=== PATIENT | female | born 1995 | race Caucasian/White ===

== ENCOUNTER 2017-05-14 05:24 | Day surgery (SDC) | payer MEDICAID ==
[~2017-05-14] VITALS: Ht 154.9 cm; Wt 54.4 kg
--- NOTE | ~2017-05-14 | OP ---
PATIENT NAME: ABE BURGESS MEDICAL RECORD: [id number] :89 [facility] ADMISSION DATE: SURGEON: AGUSTÍN TALAVERA MD DATE OF OPERATION: 05/14/2017 PREOPERATIVE DIAGNOSIS: Chronic pharyngitis. POSTOPERATIVE DIAGNOSIS: Chronic pharyngitis. PROCEDURE: Tonsillectomy and adenoidectomy. SURGEON: Agustín Talavera MD ANESTHESIA: General orotracheal. BLOOD LOSS: Less than 5 cc. SPECIMENS: Right and left tonsil. COMPLICATIONS: None. DISPOSITION: Recovery stable. DESCRIPTION OF PROCEDURE: She was brought to the operating room and placed in supine position, sedated by mask by anesthesia and then intubated. Eyes were taped. The head drape was applied. The table was turned 90 degrees. She was positioned for tonsillectomy. Using a headlight, a Justa-Errol mouth gag was carefully inserted and elevated on a towel on her chest. The palate was examined and palpated. It was normal. A red rubber catheter was placed through the right side of the nose into the pharynx and grasped with tonsil clamp to retract the soft palate. Using a mirror, the nasopharynx was examined. Suction cautery on a setting of 35 was used to ablate and suction the adenoid pad with no significant bleeding. The choanae and eustachian tube orifices were normal bilaterally. The red rubber catheter was let down and removed. The right tonsil was grasped at the superior pole with a straight Allis clamp. Spatula tip cautery on a setting of 9 was used to dissect out the tonsil along its capsule, preserving the anterior and posterior tonsillar pillars. The left tonsil was removed in the same fashion. There was tremendous amount of caseous material both tonsils. After the tonsils were out, both sides of the nose were irrigated with saline. The pharynx was suctioned. Tonsillar fossae were agitated with the Yankauer suction and then suction cautery on a setting of 20 was used to control minimal oozing. With the field clean and dry, she was awakened, extubated, and transported to recovery in good condition. No complications. TRANSINT:[id number] Voice Confirmation ID: [id number] DOCUMENT ID: [id number] OPERATIVE REPORT [id number] SCARBOUGH,ABEAGUSTÍN RIZO MD at 1458 CC: [id number] DICTATION DATE: 05/14/17 1028 [employer] SALESPERSON: 05/14/17 1329 [facility] 05/14/17 [id number] [place] [address]
--- NOTE | ~2017-05-14 | HP ---
PATIENT: ABE BURGESS MEDICAL RECORD: [id number] ACCOUNT: [id number] LOCATION:[facility] : 95 ADMISSION DATE: 05/14/17 HISTORY AND PHYSICAL EXAMINATION HISTORY OF PRESENT ILLNESS: Abe is 22 years old. She has been having persistent problems with recurrent strep pharyngitis. She is being admitted for tonsillectomy and adenoidectomy. PAST MEDICAL HISTORY: Includes cardiac ablation in 2008. CURRENT MEDICATIONS: None. ALLERGIES: No known drug allergies. PHYSICAL EXAMINATION: GENERAL: She is healthy-appearing. FACE: Normal, symmetric. No lesions. EYES: Sclerae and conjunctivae are normal. EARS: Canals and TMs are normal. NOSE: No mass, polyps or drainage. ORAL CAVITY AND OROPHARYNX: Normal palate. Tongue protrudes in midline. Her tonsils are chronically infected appearing with caseous material and inflammation. NECK: No masses, no adenopathy. CHEST: Clear. CARDIOVASCULAR: Regular rate and rhythm. No murmur. EXTREMITIES: Normal. IMPRESSION: Chronic pharyngitis. PLAN: Tonsillectomy and adenoidectomy. TRANSINT:[id number] Voice Confirmation ID: [id number] DOCUMENT ID: [id number] AGUSTÍN RODARTE MD at 1458 CC: [id number] DICTATION DATE: 05/10/17 0838 [employer] AS[employer]ER: 05/10/17 0954 [facility] 05/14/[address] [address]
[2017-05-14 06:08] LABS: HEMATOCRIT 39.5 % (36.0-48.0); HEMOGLOBIN 13.3 g/dL (12-16); MCH 29.8 pg (26.0-34.0); MCHC 33.7 g/dL (31.0-37.0); MCV 88.6 fL (80.0-100.0); MEAN PLATELET VOLUME 10.9 fL (7.4-10.4); RBC 4.46 10x6/uL (4.00-5.40); RDW 12.9 % (11.5-14.5); WBC 6.3 10x3/uL (4.8-10.8)
[2017-05-14 06:31] VITALS: BP 90/64; Ht 154.9 cm; Wt 54.4 kg
[2017-05-14 06:51] LABS: HCG URINE NEGATIVE (NEGATIVE)
== END 2017-05-14 12:05 | disposition home or self-care (01) ==
LOC: D.OPS 05:24
PROVIDERS: Anesthesiology; Otolaryngology
DX: J35.01 Chronic tonsillitis (principal); Z01.812 Encounter for preprocedural laboratory examination